=== PATIENT | male | born 1995 | race Caucasian/White ===

== ENCOUNTER 2017-02-26 13:30 | Emergency (ER) | payer OTHER ==
[~2017-02-26] VITALS: Ht 167.6 cm; Wt 90.7 kg
--- NOTE | 2017-02-26 14:31 | NUR ---
Patient ambulated to bed 6. RN evaluating patient at bedside.
--- NOTE | 2017-02-26 14:33 | NUR ---
21M BIB SELF C/O THROAT PAIN, ACHING, NON-RADIATING, 6/10 X 2 WEEKS; PT C/O PRODUCTIVE COUGH W/ YELLOW PHLEGM X 2 WEEKS; PT DENIES ANY MEDICAL HISTORY; BL LUNG SOUNDS CLEAR, RR EVEN/UNLABORED AT THIS TIME; A&OX4, PEERL; PT DENIES N/V/D AT THIS TIME; SKIN IS WARM/DRY/INTACT AT THIS TIME; STEADY GAIT; PT RESTING IN BED W/ HOB ELEVATED AND IN LOWEST POSITION; POSITIONED FOR COMFORT; ER MD MADE AWARE OF STATUS. WILL CONTINUE TO MONITOR.
--- NOTE | 2017-02-26 14:53 | NUR ---
ER MD DR. GOMEZ EVALUATING PT AT BEDSIDE.
[2017-02-26 15:07] VITALS: BP 134/78
--- NOTE | 2017-02-26 15:07 | NUR ---
Patient discharged with v/s stable. Written and verbal after care instructions given and explained. Patient alert, oriented and verbalized understanding of instructions. Ambulatory with steady gait. All questions addressed prior to discharge. ID band removed. Patient advised to follow up with PMD. Rx of PREDNISONE 20MG & MOTRIN 800MG given. Patient educated on indication of medication including possible reaction and side effects. Opportunity to ask questions provided and answered.
== END 2017-02-26 15:07 | disposition home or self-care (01) ==
LOC: MED 13:30
DX: J02.9 Acute pharyngitis, unspecified (principal)
CPT/HCPCS: 99283

== ENCOUNTER 2019-01-21 18:10 | Emergency (ER) | payer BC, OTHER ==
[~2019-01-21] VITALS: Ht 165.1 cm; Wt 103.0 kg
[2019-01-21 18:21] VITALS: BP 154/85
--- NOTE | 2019-01-21 18:27 | NUR ---
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
[2019-01-21] MEDS ORDERED: FLUORESCEIN OPTH STRIP 0.6 MG OP ONE (18:50)
[2019-01-21] MEDS ORDERED: TETRACAINE HCL/PF 0.5% OPTH 4 ML BTL OP ONE (18:50)
--- NOTE | 2019-01-21 19:05 | NUR ---
Pt report given to JUAN MANUEL DAVIS. Transfer of care at this time.
--- NOTE | 2019-01-21 19:30 | NUR ---
VISUAL ACUITY TEST PERFORMED. L EYE 20/15, R EYE 20/20
[2019-01-21 20:00] VITALS: BP 127/72
--- NOTE | 2019-01-21 20:00 | NUR ---
Patient discharged with v/s stable. Written and verbal after care instructions given and explained. Patient alert, oriented and verbalized understanding of instructions. Ambulatory with steady gait. All questions addressed prior to discharge. ID band removed. Patient advised to follow up with PMD. Rx of GENTAMICIN SULFATE OPTHALMIC, IBUPROFEN given. Patient educated on indication of medication including possible reaction and side effects. Opportunity to ask questions provided and answered.
== END 2019-01-21 20:00 | disposition home or self-care (01) ==
LOC: MED 18:10
DX: H57.11 Ocular pain, right eye (principal); H53.8 Other visual disturbances
CPT/HCPCS: 99283